=== PATIENT | male | born 1955 | race Caucasian/White ===

== ENCOUNTER 2022-09-15 08:58 | Outpatient (CLI) | payer MEDICARE, BC, SELFPAY | END 2022-09-15 08:59 | disposition home or self-care (01) | PROVIDERS: PCP Orthopaedic Surgery Sports Medicine; Visit Provider Orthopaedic Surgery Sports Medicine | DX: Z01.818 Encounter for other preprocedural examination (principal) | CPT/HCPCS: 36415; 86850; 86900; 86901 ==

== ENCOUNTER 2022-09-17 08:59 | Day surgery (SDC) | payer MEDICARE, BC, SELFPAY ==
[2022-09-17] VITALS (18 sets, daily range): BP systolic 94–130; BP diastolic 62–92; PULSE 68–96; RESP 16–20; TEMP 36.2–36.9; O2SAT 90–98; BMI 31.6
[2022-09-17] MEDS: LACTATED RINGERS 1000 ML 1,000 ML 100 ML IV ×2 (09:10→12:30)
[2022-09-17] MEDS: ACETAMINOPHEN 500 MG TABLET 1000 MG PO ×3 (09:22→23:17)
[2022-09-17] MEDS: OXYCODONE (CR) 10 MG TAB.ER.12H PO (09:22)
[2022-09-17] MEDS: SODIUM CHLORIDE 0.9 % (FLUSH) 10 ML SYRINGE IVF (09:22)
[2022-09-17] MEDS: CELECOXIB 200 MG CAPSULE PO ×2 (09:22→20:07)
--- NOTE | 2022-09-17 09:55 | CRLHL7_ITS ---
For Patients: As a result of the Cures Act, medical imaging exams and procedure reports are released immediately into your electronic medical record. You may view this report before your referring provider. If you have questions, please contact your health care provider. Indication: S/P TOTAL HIP ARTHROPLASTY Technique: AP hip centered pelvis and lateral view left hip Findings/Impression: Hardware from a left total hip arthroplasty is in satisfactory position. Bone alignment is normal. No sign of acute fracture. Postop changes are within normal limits. Dictated by Wali Carlos MD @ 09/18/2022 9:33:26 AM (Electronically Signed)
[2022-09-17] MEDS: fentaNYL 100 MCG/2 ML inj IVP (11:00)
[2022-09-17] MEDS: MIDAZOLAM HCL 1 MG/ML inj IVP (11:00)
--- NOTE | 2022-09-17 11:09 | SUR.PREOP ---
TIME?OUT:?1055 PT/RN/MDA?VERIFICATION?OF?SURGICAL?SITE,?PROCEDURE,?AND?CONSENT OBTAINED?PRIOR?TO?INVASIVE?PROCEDURE.
--- NOTE | 2022-09-17 11:15 | CRLHL7_ITS ---
For Patients: As a result of the Cures Act, medical imaging exams and procedure reports are released immediately into your electronic medical record. You may view this report before your referring provider. If you have questions, please contact your health care provider. Indication: Hip replacement surgery Technique: AP hip fluoroscopic image. Fluoroscopy time 40.1 seconds. Findings/Impression: Hardware from a left total hip arthroplasty is in satisfactory position. Dictated by Wali Carlos MD @ 09/17/2022 12:54:26 PM (Electronically Signed)
[2022-09-17] MEDS: TRANEXAMIC ACID 100 MG/ML INJ 1000 MG IV (11:20)
[2022-09-17] MEDS: CEFAZOLIN 2 GM in 0.9 % SODIUM CHLORIDE Mini-bag 100 ML IVPB ×2 (11:21→16:47)
--- NOTE | 2022-09-17 11:33 | P.NB_ITS ---
Nerve Block Nerve Block Time Seen by Provider: 11:02 Date Seen: 09/17/22 Type of block requested by surgeon for post-operative analgesia: CHINYERE/LFCN Side: left Time out performed: Yes Verification of patient name: Yes Verification of date of : Yes Site marking: site marked Name of person performing procedure: Antonio Continuous monitoring Was continuous monitoring of O2 sat, B/P, principal android developer, recorded every 15 minutes?: Yes Procedure Checklist: sterile prep, needles and gloves Ultrasound guided. Images saved: Yes Medications given in 5ml increments after negative aspiration: Ropivicaine %: 0.5 mL: 30 Needle gauge: 20 Decadron (mg): 10 Precedex (mcg): 25 Patient tolerated procedure well: Yes Additional comments: Needle noted below psoas tendon needle noted adjacent to LFCN Block Charges Block Charge (with Pro Fee): Other Periph Nerve Block Use of Ultrasound Machine for Block: Yes- US Guidance/pain block
--- NOTE | 2022-09-17 11:34 | W.ANESCHARGE ---
Anesthesia Charges Start Date/Time Anesthesia Start Date: 09/17/22 Anesthesia Start Time: 11:11 Stop Date/Time Anesthesia Stop Date: 09/17/22 Anesthesia Stop Time: 13:32
--- NOTE | 2022-09-17 12:55 | PM.ORPRC ---
Procedure Note Date of procedure: 09/17/22 Procedure: PREOPERATIVE DIAGNOSIS: 1. Left hip osteoarthritis, severe, primary POSTOPERATIVE DIAGNOSIS: 1. Left hip osteoarthritis, severe, primary PROCEDURE: 1. Left total hip arthroplasty-anterior approach 2. 08521 - intraoperative fluoroscopy up to 1 hour. SURGEON: Mook Khan MD. KOSHER DIETARY SERVICE SUPERVISOR: Radha Bustos Pa-c; CORINNE Gonzáles - Of note, a skilled assistant professor of physics was critical for this case to aid in patient positioning, tissue retraction, limb manipulation/positioning, dislocation/relocation, patient safety, and closure. ANESTHESIA: General endotracheal anesthetic EBL: 300 mL IMPLANTS: DePuy J&J uncemented total hip Harrington cup size 54, hole eliminator, +4 neutral liner Actis stem, high offset, size 7 +1.5 mm ceramic 36 mm head. COMPLICATIONS: None evident INDICATIONS: The patient is a pleasant 67-year-old who has experienced severe left hip pain and difficulty bearing weight. Workup included x-rays which revealed severe osteoarthrosis in the hip. Given the deformity, the dysfunction, and the pain, as well as the failure of nonoperative management, recommendation was made for surgery. FINDINGS: Full-thickness chondral loss broadly to the femoral head. Osteophytes around the femoral head/neck junction were significant. Also around the acetabular moderate effusion upon entering the joint. DESCRIPTION OF PROCEDURE: Following a thorough discussion of risks, benefits, and alternatives consent was obtained and the left hip was marked. The patient was brought to the operating room and placed supine on the operating table. Induction of anesthesia was undertaken. 2 g IV Ancef and 1 g tranexamic acid was administered within 1 hr of incision preoperatively. Proper time-out was performed identifying proper patient, site, procedure. The operative extremity was prepped and draped in the appropriate sterile fashion using ChloraPrep after the patient was positioned on the [place] table with head in neutral alignment and all bony prominences well padded. C-arm fluoroscopic imaging was utilized to confirm proper pelvis rotation and position, and to get true AP films of both the contralateral left, and the affected left hip. This is for comparison. A longitudinal incision was made starting approximately 1 cm distal to the ASIS, and 3-4 cm lateral. The incision was extended distally aiming toward the lateral border the patella. Sharp incision through skin and bovie cautery through the subcutaneous tissue allowed identification of the TFL fascia. This was sharply divided, and the fascia bluntly released from the muscle fibers as we dissected medial. Upon coming to the medial border, we were able to retract the TFL laterally, and penetrated the deeper fascia and identify the crossing circumflex vessels. These were ligated/cauterized. The rectus was elevated from the capsule, and retractors placed laterally and medially along the femoral neck to help with visualization of the capsule. We then performed an inverted T capsulotomy. The capsule was tagged for later repair. Retractors were placed inside the capsule. The femoral neck was visualized after releasing medially down to the lesser trochanter, along the saddle laterally, and up onto the acetabulum. The femoral neck cut was made in line with our preoperative templating. The head was removed in a single piece, and sized. We turned our attention to acetabular preparation. Initially, the labrum was resected from around the perimeter, the pulvinar was excised, allowing us to visualize the false wall. We started the reaming with a 43 mm reamer. This was medialized down to the true wall. We then enlarged our reamers sequentially up to one size less than the selected cup size. We trialed at the same size and found it to have an excellent fit. The selected cup was then opened, inserted, and impacted in line with the goal of 40-45? of abduction, and 20-25? of anteversion. This was confirmed on C-arm fluoroscopic imaging to be in the appropriate/goal position. Once the cup was placed we placed a hole eliminator and a liner consistent with preop planning. Attention was turned to the femoral preparation. The limb was extended, externally rotated, and adducted. The posteromedial capsule was released, as retractors were placed allowing excellent access to the proximal femur. Initially a box sealing machine catcher was followed by canal finder followed by various broaches. We broached sequentially up to size noted above, found it to have excellent rotational control, and trialing various heads and necks, revealed that appropriate neck offset, and the above noted head size provided the greatest stability, and congregational of length, and offset. C-arm fluoroscopic imaging confirmed position of the stem, as well as leg lengths, which were compared with the pre procedure all fluoroscopic images. Trial implants were removed, the real femoral stem inserted, as was the ceramic head. After reducing, the leg was placed through range of motion and stability was confirmed anterior, posterior, and lateral. A 3 min Betadine soak was then performed, and thorough irrigation with normal saline followed. Closure of the capsule was performed with #1 PDS. Bleeding was confirmed to be controlled at this stage, and the TFL fascia was closed with #0 strata fix. Subcutaneous, and subcuticular closure was performed with 2-0 Vicryl and 4-0 Monocryl, respectively. Dressings were applied, and the patient was awoken from anesthesia and transferred the PACU in stable condition. A skilled assistant professor of physics was critical for this case to aid in patient positioning, tissue retraction, proximal femur exposure, limb manipulation/positioning, dislocation/relocation, patient safety, and closure. PLAN: 1. Weight bear as tolerated operative extremity. 2. 23 hr perioperative antibiotics. 3. Ice. 4. PT/OT consults for ambulation assistance/mobility education. 5. Social work consult for discharge planning. 6. DVT prophylaxis with at SCDs, Arturo Hose, and Xarelto x5 days followed by aspirin for a total of 1 month..
--- NOTE | 2022-09-17 13:32 | W.ANESCHARGE ---
Anesthesia Charges Start Date/Time Anesthesia Start Date: 09/17/22 Anesthesia Start Time: 11:11 Stop Date/Time Anesthesia Stop Date: 09/17/22 Anesthesia Stop Time: 13:32
--- NOTE | 2022-09-17 13:49 | SUR.PHASEI ---
xray here for ap/lat let hip
--- NOTE | 2022-09-17 14:43 | PC.NURSE ---
patient belonging list done in sds
--- NOTE | 2022-09-17 16:38 | P.IMCN_ITS ---
Date of Consult Patient: [facility] Patient Consult date: 09/17/22 Requesting Physician: Orthopedics Primary Care Provider: Damien Simmons PA-C Consult Narrative Reason for consult: Postoperative medical management Narrative: Ryley Hoffman is a 67 year old male seen in consultation for postoperative medical management following left total hip arthroplasty. Procedures performed today by Dr. Khan who requests consultation. Had general anesthesia. Postoperatively he reports no significant pain. He has had no nausea. He feels well. Preoperatively he reports he was doing well other than intractable left hip pain. No other recent medical problems. He has had left total knee arthroplasty in the past and right knee arthroscopy in the past without complications. No personal or family history of problems with bleeding, clotting or problems with anesthesia. Review of Systems Narrative: Other than hip pain he reports he is doing very well. 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 They have a split-level home. He plans to live on the lower level while he recovers from his surgery. He did this after his left knee arthroplasty and it seemed to work well. 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 His hip arthritis is been disabling for him at work. He does not smoke. He does not drink alcohol. Smoking Status: Never smoker Do you use any of these nicotine containing products: None How often do you have a drink containing alcohol: never How often do you have six or more drinks on one occasion: Never AUDIT-C Alcohol total score: 0 Non-prescribed substance use: denies use Caffeine: Yes (2 cans pop/day) Meds Home Medications and Allergies Home Medication Comments: P.r.n. ibuprofen Allergies Allergy/AdvReac Type Severity Reaction Status Date / Time No Known Drug Allergies Allergy Verified 09/17/22 09:11 Exam Narrative: Exam Narrative: He is alert, pleasant and in no distress. He gives his own history. Oropharynx is normal except a small airway. Neck is supple without mass or adenopathy or stridor. Respirations are clear to auscultation. No wheezing rales or rhonchi. Cardiovascular: S1, S2, regular rate and rhythm. No murmur gallop or rub. Abdomen: Bowel sounds active. Abdomen is soft without tenderness or mass. He has an umbilical hernia. It feels like he may have some omentum protruding through the hernia defect. This does not easily reduced. This is not tender. External genitalia normal. Extremities normal. He has intact pulses sensation and motion in all 4 extremities. No edema. No rash Const: Vital Signs, click to edit/add: Vital Signs - 24 hr 09/17/22 09:14 09/17/22 10:58 09/17/22 13:30 Temperature 98.4 F 97.4 F L Pulse Rate 84 81 81 Pulse Rate [Left P ulse Oximeter] Respiratory Rate 16 16 16 Blood Pressure 130/92 H 128/79 124/71 Blood Pressure [Ri ght Arm] Pulse Oximetry 95 95 94 Oxygen Delivery Me thod Room Air Nasal Cannula Room Air Oxygen Flow Rate 2 09/17/22 13:35 09/17/22 13:40 09/17/22 13:45 Temperature Pulse Rate 71 69 69 Pulse Rate [Left P ulse Oximeter] Respiratory Rate 16 16 16 Blood Pressure 111/76 107/69 103/67 Blood Pressure [Ri ght Arm] Pulse Oximetry 94 94 93 Oxygen Delivery Me thod Room Air Room Air Room Air Oxygen Flow Rate 2 2 09/17/22 13:50 09/17/22 14:00 09/17/22 14:15 Temperature 97.8 F 97.2 F L 97.2 F L Pulse Rate 69 71 Pulse Rate [Left P ulse Oximeter] 70 Respiratory Rate 16 16 16 Blood Pressure 113/70 Blood Pressure [Ri ght Arm] 119/62 118/80 Pulse Oximetry 93 90 Oxygen Delivery Me thod Room Air Room Air Room Air Oxygen Flow Rate 09/17/22 14:30 09/17/22 14:45 09/17/22 15:00 Temperature 97.2 F L 97.1 F L 97.1 F L Pulse Rate Pulse Rate [Left P ulse Oximeter] 68 75 70 Respiratory Rate 16 16 16 Blood Pressure Blood Pressure [Ri ght Arm] 117/76 117/76 122/73 Pulse Oximetry 92 92 94 Oxygen Delivery Me thod Room Air Room Air Room Air Oxygen Flow Rate 09/17/22 15:30 Temperature 97.2 F L Pulse Rate Pulse Rate [Left P ulse Oximeter] 78 Respiratory Rate 18 Blood Pressure Blood Pressure [Ri ght Arm] 120/74 Pulse Oximetry 95 Oxygen Delivery Me thod Room Air Oxygen Flow Rate Documenting provider has reviewed patient's vital signs: yes Assessment and Plan Assessment and plan (1) Osteoarthritis of left hip: Problem comment: Severe, [id number] status post left total hip arthroplasty by Dr. Khan 09/17/2022. anticipate uncomplicated recovery, routine pain management and routine therapy. Status: Acute Plan Postop earlier today for left hip arthroplasty. Doing well. Total time spent today is 30 minutes, 20 minutes in coordination of care and discussing with patient and ongoing evaluation management of recovery from hip surgery.
[2022-09-17] MEDS: LACTATED RINGERS 1000 ML 1,000 ML 75 ML IV (16:48)
--- NOTE | 2022-09-17 17:58 | PC.NURSE ---
End of Shift Note: Patient arrived to the unit around 1400 today. When he first arrived he was very sleepy barely opened his eyes would shake his head yes or no for answers. He is now wide awake and has no complaints of pain. Tolerated a regular diet for dinner. has been at bedside. Will continue to monitor until next shift arrives.
[2022-09-17] MEDS: SENNOSIDES 1 TAB TABLET 2 TAB PO (20:08)
[2022-09-18 00:35] VITALS: BP 92/66; PULSE 90; RESP 16; TEMP 36.6; O2SAT 96
[2022-09-18] MEDS: CEFAZOLIN 2 GM in 0.9 % SODIUM CHLORIDE Mini-bag 100 ML IVPB (00:39)
[2022-09-18 00:45] VITALS: BP 103/69; PULSE 90; RESP 16; O2SAT 96
--- NOTE | 2022-09-18 01:33 | PC.NURSE ---
Around 2325 designer/writer took pt vitals, BP 94/79, O2 93%, bpm 91, 97.8F, 16 RR. Vitals were then taken again at 0030 pt's bp was 92/66, bmp was 90, O2 was 92%, and RR 16, pt denies SOB, headache, dizziness and nausea, pt then used restroom and bp was taken again right after getting him back to bed and it was 103/69. [employer] called at 0050 Ananda to notify them of soft bp's. Ananda called back at 0100, no new orders.
[2022-09-18 02:55] VITALS: BP 100/65; PULSE 92; RESP 14; TEMP 36.7; O2SAT 94
[2022-09-18 06:42] LABS: Basophils Percent Auto 0.1 % (0.0-3.0); Hematocrit 37.2 % (37.0-53.0); Hemoglobin* 12.4 gm/dL (13.5-17.5); Immature Granulocytes Pct Auto 0.1 %; Lymphocytes Percent Auto 9.3 % (20-44); Mean Corpuscular HGB Conc 33 gm/dL (32-36); Mean Corpuscular Hemoglobin 31 pg (26-34); Mean Corpuscular Volume 94 fL (80-100); Monocytes Percent Auto 7.8 % (0.0-11.0); Neutrophils Percent Auto 82.7 % (42.0-72.0); Platelet Count* 289 K/uL (140-440); RDW Coefficient of Variation % 12.4 % (11.5-15.5); Red Blood Count 3.95 m/uL (4.30-5.90); White Blood Count* 14.75 K/uL (4.50-11.00)
[2022-09-18 06:47] LABS: Slide Review Reflex No
[2022-09-18 07:00] VITALS: BP 122/76; PULSE 93; RESP 14; TEMP 36.6; O2SAT 94
[2022-09-18 07:15] LABS: Potassium* 4.3 mmol/L (3.6-5.1); Sodium* 135 mmol/L (135-149)
[2022-09-18 07:18] LABS: Blood Urea Nitrogen* 26 mg/dL (7-30); Est. Creatinine Clearance* 75.03; Estimated Glomerular Filt Rate 83 ml/min
--- NOTE | 2022-09-18 07:35 | PC.NURSE ---
Pt alert and oriented x3. Afebrile. Pt reports 0/10 pain in left hip, pain managed with?scheduled Tylenol. Pt denies chest pain, SOB, and N/V. Pt is up SBA with walker and gait belt. Pt is tolerating a regular diet, voiding and saline locked. Pt slept intermittently throughout most of night.?
--- NOTE | 2022-09-18 08:05 | PM.ORPN ---
Subjective Subjective Time Seen by Provider: 08:05 Date Seen: 09/18/22 Principal diagnosis: Status post left hip replacement Interval history: Ryley is comfortable this morning at rest. He plans to discharge to home today. His accompanies him in the room today. He states he get a good night sleep last night. Ortho Exam Narrative Exam Narrative: ROS: Patient denies nausea, vomiting, fever, chills, chest pain, shortness of breath. Alert and oriented x3. Patient is in no acute distress. Converses without labored breathing. Hearing is grossly intact. Ambulates with a walker. Examination of left lower extremity shows the dressing is intact. No erythema or drainage or sign of infection. Small area of ecchymosis is present. Edema is present about the thigh and hip which is mild. Mild thigh tenderness. CMS intact left lower extremity. Good quad strength. Bilateral calves are soft and nontender. Const Vital Signs, click to edit/add: Vital Signs - 24 hr 09/17/22 09:14 09/17/22 10:58 09/17/22 13:30 Temperature 98.4 F 97.4 F L Pulse Rate 84 81 81 Pulse Rate [Left Pulse Oximeter] Respiratory Rate 16 16 16 Blood Pressure 130/92 H 128/79 124/71 Blood Pressure [Left Arm] Blood Pressure [Right Arm] Pulse Oximetry 95 95 94 Oxygen Delivery Method Room Air Nasal Cannula Room Air Oxygen Flow Rate 2 09/17/22 13:35 09/17/22 13:40 09/17/22 13:45 Temperature Pulse Rate 71 69 69 Pulse Rate [Left Pulse Oximeter] Respiratory Rate 16 16 16 Blood Pressure 111/76 107/69 103/67 Blood Pressure [Left Arm] Blood Pressure [Right Arm] Pulse Oximetry 94 94 93 Oxygen Delivery Method Room Air Room Air Room Air Oxygen Flow Rate 2 2 09/17/22 13:50 09/17/22 14:00 09/17/22 14:15 Temperature 97.8 F 97.2 F L 97.2 F L Pulse Rate 69 71 Pulse Rate [Left Pulse Oximeter] 70 Respiratory Rate 16 16 16 Blood Pressure 113/70 Blood Pressure [Left Arm] Blood Pressure [Right Arm] 119/62 118/80 Pulse Oximetry 93 90 Oxygen Delivery Method Room Air Room Air Room Air Oxygen Flow Rate 09/17/22 14:30 09/17/22 14:45 09/17/22 15:00 Temperature 97.2 F L 97.1 F L 97.1 F L Pulse Rate Pulse Rate [Left Pulse Oximeter] 68 75 70 Respiratory Rate 16 16 16 Blood Pressure Blood Pressure [Left Arm] Blood Pressure [Right Arm] 117/76 117/76 122/73 Pulse Oximetry 92 92 94 Oxygen Delivery Method Room Air Room Air Room Air Oxygen Flow Rate 09/17/22 15:30 09/17/22 16:00 09/17/22 17:00 Temperature 97.2 F L Pulse Rate Pulse Rate [Left Pulse Oximeter] 78 82 82 Respiratory Rate 18 20 20 Blood Pressure Blood Pressure [Left Arm] Blood Pressure [Right Arm] 120/74 119/68 109/77 Pulse Oximetry 95 96 98 Oxygen Delivery Method Room Air Room Air Room Air Oxygen Flow Rate 09/17/22 18:00 09/17/22 21:00 09/17/22 23:25 Temperature 97.2 F L Pulse Rate Pulse Rate [Left Pulse Oximeter] 96 95 91 Respiratory Rate 20 18 16 Blood Pressure Blood Pressure [Left Arm] 100/71 Blood Pressure [Right Arm] 115/77 Pulse Oximetry 94 97 Oxygen Delivery Method Room Air Room Air Oxygen Flow Rate 09/17/22 23:25 09/18/22 00:35 09/18/22 00:45 Temperature 97.9 F 97.9 F Pulse Rate Pulse Rate [Left Pulse Oximeter] 91 90 90 Respiratory Rate 18 16 16 Blood Pressure Blood Pressure [Left Arm] 94/79 Blood Pressure [Right Arm] 92/66 103/69 Pulse Oximetry 93 96 96 Oxygen Delivery Method Room Air Room Air Room Air Oxygen Flow Rate 09/18/22 02:55 Temperature 98.0 F Pulse Rate Pulse Rate [Left Pulse Oximeter] 92 Respiratory Rate 14 Blood Pressure Blood Pressure [Left Arm] Blood Pressure [Right Arm] 100/65 Pulse Oximetry 94 Oxygen Delivery Method Room Air Oxygen Flow Rate Assessment and Plan Assessment and plan (1) Status post left hip replacement: Problem details: 09/17/2022 Status: Acute Assessment and Plan: Plan for discharge is today to home if they meet discharge criteria. DVT prophylaxis includes Xarelto 10 mg daily for total of 5 days, then aspirin 81 mg twice daily for 30 days, Arturo stockings x1 month may remove for 1 hr per day, frequent ambulation Remove dressing in 1 week. Observe wound and phone Orthopedics with any questions or concerns Use Ice on operative hip unrestricted. Return to clinic in 1 week with PA for a wound check Return to clinic in [address] Khan Minimize narcotic use. Wean off and discontinue soon as possible. Activities as tolerated. No strenuous activity. Attend outpt PT Patient is instructed to notify Orthopedics with any questions or concerns.
[2022-09-18] MEDS: SENNOSIDES 1 TAB TABLET 2 TAB PO (09:37)
[2022-09-18] MEDS: ACETAMINOPHEN 500 MG TABLET 1000 MG PO (09:37)
[2022-09-18] MEDS: CELECOXIB 200 MG CAPSULE PO (09:37)
[2022-09-18] MEDS: RIVAROXABAN 10 MG TABLET PO (09:37)
--- NOTE | 2022-09-18 10:22 | PC.SOCIAL ---
Met with pt and pt's to discuss discharge plans. Pt is in good spirits and is moving well. Pt is prepared for recovery at home and has assistance from his . There are no identified social work needs. Informed pt and pt's if they have any questions/concerns they can reach out to social work department if needed.
--- NOTE | 2022-09-18 11:30 | PC.NURSE ---
Patient vitally stable. PIV removed. All concerns addressed. AVS reviewed. Patient discharged to home with spouse.
== END 2022-09-18 11:30 | disposition home or self-care (01) ==
LOC: OR 08:59 → MEDSURG 09:04
PROVIDERS: PCP Physician Assistant Medical; Visit Provider Orthopaedic Surgery Sports Medicine
PROC: (CPT 27130; principal; 2022-09-17 11:15)
DX: M16.12 Unilateral primary osteoarthritis, left hip (principal); G89.18 Other acute postprocedural pain
CPT/HCPCS: 27130; 01214; 36415; 64450; 73501; 76942; 82565; 84132; 84295; 84520; 85025; 97110; 97116; 97161; 97165; A9270; C1776; J0330; J0690; J1100; J2250; J2371; J2405; J2704; J2795; J3010; J3490; J7120

== ENCOUNTER 2022-10-09 10:30 | Outpatient (RCR) | payer MEDICARE, BC, SELFPAY | END 2022-10-09 12:25 | disposition home or self-care (01) | PROVIDERS: PCP Orthopaedic Surgery Sports Medicine; Visit Provider Orthopaedic Surgery Sports Medicine | DX: M16.12 Unilateral primary osteoarthritis, left hip (principal); Z96.642 Presence of left artificial hip joint; Z51.89 Encounter for other specified aftercare | CPT/HCPCS: 97110; 97116; 97140; 97161; 97164; 97535 ==

== ENCOUNTER 2024-02-03 08:27 | Outpatient (CLI) | payer MEDICARE, BC, SELFPAY ==
--- OUTSIDE RECORDS SUMMARY | 2024-02-05 11:45 | XMS_ITS | Clinical Summary ---
Author Organization [employer] [facility] Address [place], [place] [address] Care Team Providers Care Property Insurance Inspector Name Role Phone Bo Mehta MD Primary Care Provider U navailable Allergies No known active allergies Medications No known medications Active Problems Problem Noted Date Diagnosed Date Knee injury 05/11/2014 Overview (05/11/2014): Many surgeries since 1974 Immunizations Name Administration Dates Next Due Tdap 05/11/2014 Family History Medical History Relation Name Comments Good Health Father born 1922 Other Mother at 85 - ol d age Good Health Sister all 4 sisters Relation Name Status Comments Father Mother Sister Social History Tobacco Use Types Packs/Day Years Used Date Smoking Tobacco: Never Smokeless Tobacco: Never Tobacco Cessation:Counseling Given: Yes Alcohol Use Standard Drinks/Week Comments No 0 (1 standard drink = 0.6 oz pur e alcohol) Sex and Gender Information Value Date Recorded Sex Assigned at Not on file Gender Identity Not on file Sexual Orientation Not on file Obstetrics History Last Filed Vital Signs Vital Sign Reading Time Taken Comments Blood Pressure 111/77 05/11/2014 8:02 AM 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 DIRECTOR Pulse 89 05/11/2014 8:02 AM 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 DIRECTOR Temperature 36.9 C (98.5 F) 05/11/2014 8:02 AM 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 DIRECTOR Respiratory Rate - - Oxygen Saturation 98% 05/11/2014 8:02 AM 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 DIRECTOR Inhaled Oxygen Concentration - - Weight 98 kg (216 lb) 05/11/2014 8:02 AM 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 DIRECTOR Height - - Body Mass Index - - Plan of Treatment Health Maintenance Due Date Last Done Comments Depression screening for age 12+ 1968 BMI (ht and wt on same day) for age 18+ 1974 Hepatitis C screening for age 18-79 1974 Colonoscopy through age 75 2001 Lipids for age 45-75 2001 Zoster (shingles) series for age 50+ (1 of 2) 08/14/19 07 Pneumococcal series for age 65+ (1 of 1 - PCV) 022 COVID-19 vaccine series ( - 2023- season) 4 Influenza for age 65+ 11/10/2023 Tetanus booster 05/11/2024 05/11/2014 Tdap Completed 05/11/2014 Care Teams Property Insurance Inspector Relationship Specialty Start Date End Date Bo Mehta MD PCP - General 10/25/05
== END 2024-02-03 08:28 | disposition home or self-care (01) ==
LOC: NFLDREF 02-05 11:43
PROVIDERS: PCP Physician Assistant Medical; Referring Provider Physician Assistant Medical; Visit Provider Physician Assistant Medical
DX: L98.9 Disorder of the skin and subcutaneous tissue, unspecified (principal); K42.0 Umbilical hernia with obstruction, without gangrene; Z12.5 Encounter for screening for malignant neoplasm of prostate; Z13.29 Encounter for screening for other suspected endocrine disorder; Z13.6 Encounter for screening for cardiovascular disorders
CPT/HCPCS: 80053; 80061; 84443; G0103

== ENCOUNTER 2024-03-02 05:45 | Day surgery (SDC) | payer MEDICARE, BC, SELFPAY ==
[2024-03-02] MEDS: 0.9 % SODIUM CHLORIDE 500 ML 500 ML 100 ML IV (06:15)
[2024-03-02 06:31] VITALS: BP 141/82; PULSE 82; RESP 16; TEMP 36.7; O2SAT 96; BMI 31.8
[2024-03-02] MEDS: SODIUM CHLORIDE 0.9 % (FLUSH) 10 ML SYRINGE IVF (06:35)
--- NOTE | 2024-03-02 07:20 | W.PM.H&PU ---
History & Physical Update History & Physical Update H&P Reviewed and patient assessed: The following changes are noted below H&P Updates: Patient has seen dermatology for Lip lesion. They are planning a Mohs procedure.
[2024-03-02] MEDS: CEFAZOLIN 2 GM INJ IVP (07:33)
[2024-03-02] MEDS: BUPIVACAINE 0.25% 30 ML INJECTION (08:15)
--- NOTE | 2024-03-02 08:32 | PM.GSPRC ---
Operative Note Date of procedure: 03/02/24 Pre-op diagnosis: Incarcerated umbilical hernia Post-op diagnosis: same Type of Procedure: Open repair 2 cm incarcerated umbilical hernia with mesh. Indications: The patient is a 68-year-old male who presented to clinic with an incarcerated umbilical hernia. After discussion, he elected to proceed with repair. Procedure Description: After discussing the risks and benefits of the procedure, the patient signed informed consent.? The operative site was marked and the patient was brought to the operating room and placed on the operating table in supine position.? Care was taken to pad the patient's pressure points.?? The patient was then given sedation by anesthesia.?? The operative site was then prepped and draped in the usual sterile fashion.? A time-out was then performed. Local anesthetic was injected into the fascia, skin and subcutaneous tissues. A curvilinear incision was made at the inferior border of the umbilicus. Dissection was carried down into the subcutaneous tissue using cautery. The hernia was dissected off the umbilical skin. Dissection was taken down to the fascia. The hernia was incarcerated. The hernia sac was opened. Omental fat was contained within. This was reduced as much as possible, however the most distal aspect that had herniated was divided with cautery, with care to ensure no other structures were contained within. The tissue was then completely reduced. The fascial edges were then cleared circumferentially. The hernia was 2 cm in size and so the decision was made to use a piece of mesh. A preperitoneal pocket was created using a combination of blunt dissection and cautery. Once this was done a piece Bard [address] mesh was placed in the space. This was secured in place using 2 0 PDS suture. The fascial opening was then closed with interrupted 0 Nurolon suture in a [id number] fashion. The umbilicus was reapproximated to the fascia using absorbable suture. The skin was closed with 3-0 Vicryl dermal and 4-0 Monocryl running subcuticular suture. Glue was then applied as well as sterile dressing. Instrument sponge and needle counts were correct at end of the case. The patient was then woken and transported to the recovery area in stable condition. The patient tolerated the procedure well. Findings: 2 cm incarcerated umbilical hernia containing abdominal fat. Anesthesia: MAC Surgeon: Belkis Mcdonald MD Estimated blood loss (mL): 5 Condition: stable Disposition: same day
--- NOTE | 2024-03-02 08:38 | W.ANESCHARGE ---
Anesthesia Charges Start Date/Time Anesthesia Start Date: 03/02/24 Anesthesia Start Time: 07:22 Stop Date/Time Anesthesia Stop Date: 03/02/24 Anesthesia Stop Time: 08:39
[2024-03-02 08:40] VITALS: BP 137/79; PULSE 73; RESP 16; TEMP 36.2; O2SAT 91
[2024-03-02 09:00] VITALS: BP 138/86; PULSE 73; RESP 16; O2SAT 91
[2024-03-02 09:15] VITALS: BP 141/90; PULSE 74; RESP 16; O2SAT 93
[2024-03-02 09:30] VITALS: BP 138/77; PULSE 73; RESP 16; O2SAT 95
== END 2024-03-02 09:48 | disposition home or self-care (01) ==
PROVIDERS: PCP Physician Assistant Medical; Visit Provider Surgery
PROC: (CPT 49592; principal; 2024-03-02 07:30)
DX: K42.0 Umbilical hernia with obstruction, without gangrene (principal)
CPT/HCPCS: 49592; 00750; C1781; J0665; J0690; J1100; J1885; J2405; J2704; J3010; J3490; J7030

== ENCOUNTER 2024-09-21 06:25 | Day surgery (SDC) | payer MEDICARE, BC, SELFPAY ==
[2024-09-21] VITALS (16 sets, daily range): BP systolic 81–134; BP diastolic 52–77; PULSE 42–77; RESP 14–24; TEMP 36.1–36.8; O2SAT 93–99; BMI 31.4
[2024-09-21] MEDS: SODIUM CHLORIDE 0.9 % (FLUSH) 10 ML SYRINGE IVF (07:00)
[2024-09-21] MEDS: LACTATED RINGERS 1000 ML 1,000 ML 100 ML IV ×3 (07:00→11:17)
[2024-09-21] MEDS: ACETAMINOPHEN 500 MG TABLET 1000 MG PO (07:05)
[2024-09-21] MEDS: OXYCODONE (CR) 10 MG TAB.ER.12H PO (07:05)
--- NOTE | 2024-09-21 07:09 | SUR.PREOP ---
TIME?OUT:?0720 PT/RN/MDA?VERIFICATION?OF?SURGICAL?SITE,?PROCEDURE,?AND?CONSENT OBTAINED?PRIOR?TO?INVASIVE?PROCEDURE.
--- NOTE | 2024-09-21 07:15 | W.PM.H&PU ---
History & Physical Update History & Physical Update H&P Reviewed and patient assessed: No changes noted
[2024-09-21] MEDS: MIDAZOLAM HCL 1 MG/ML inj IVP (07:21)
--- NOTE | 2024-09-21 07:39 | P.ANES_ITS ---
Anesthesia Charges Start Date/Time Anesthesia Start Date: 09/21/24 Anesthesia Start Time: 07:45 Stop Date/Time Anesthesia Stop Date: 09/21/24 Anesthesia Stop Time: 10:53 Coding CPT Codes CPT Codes: ANESTH HIP ARTHROPLASTY - 52445 ([id number]) P2 - PATIENT W/MILD SYST DISEASE, QK - DRILL DOCTOR 2-4 CNCRNT ANES PROC, QX - MOSS GATHERER SVC W/ MD MED DIRECTION
--- NOTE | 2024-09-21 07:39 | W.ANESCHARGE ---
Anesthesia Charges Start Date/Time Anesthesia Start Date: 09/21/24 Anesthesia Start Time: 07:45 Stop Date/Time Anesthesia Stop Date: 09/21/24 Anesthesia Stop Time: 10:53 Coding CPT Codes CPT Codes: ANESTH HIP ARTHROPLASTY - 54710 ([id number]) P2 - PATIENT W/MILD SYST DISEASE, QK - JANITOR HEAD 2-4 CNCRNT ANES PROC, QX - TUBER MACHINE CUTTER SVC W/ MD MED DIRECTION
--- NOTE | 2024-09-21 07:40 | W.PM.NB ---
Nerve Block Nerve Block Time Seen by Provider: 07:22 Date Seen: 09/21/24 Type of block requested by surgeon for post-operative analgesia: CHINYERE/LFCN Side: right Time out performed: Yes Verification of patient name: Yes Verification of date of : Yes Site marking: site marked Name of person performing procedure: Antonio Continuous monitoring Was continuous monitoring of O2 sat, B/P, pre sales architect, recorded every 15 minutes?: Yes Procedure Checklist: sterile prep, needles and gloves Ultrasound guided. Images saved: Yes Medications given in 5ml increments after negative aspiration: Ropivicaine %: 0.5 mL: 30 Needle gauge: 20 Precedex (mcg): 25 Patient tolerated procedure well: Yes Additional comments: Needle noted below psoas tendon needle noted adjacent to LFCN Block Charges Block Charge (with Pro Fee): Other Periph Nerve Block Use of Ultrasound Machine for Block: Yes- US Guidance/pain block
--- NOTE | 2024-09-21 07:45 | CRLHL7_ITS ---
For Patients: As a result of the Cures Act, medical imaging exams and procedure reports are released immediately into your electronic medical record. You may view this report before your referring provider. If you have questions, please contact your health care provider. Indication: Hip replacement surgery Technique: AP hip fluoroscopic images. Fluoroscopy time 33.9 seconds. Findings/Impression: Hardware from a right total hip arthroplasty is in satisfactory position. Dictated by Wali Carlos MD @ 09/21/2024 10:29:09 AM (Electronically Signed)
[2024-09-21] MEDS: TRANEXAMIC ACID 100 MG/ML INJ 1000 MG IV (08:17)
--- NOTE | 2024-09-21 09:55 | PM.ORPRC ---
Procedure Note Date of procedure: 09/21/24 Procedure: PREOPERATIVE DIAGNOSIS: 1. Right hip osteoarthritis, severe, primary POSTOPERATIVE DIAGNOSIS: 1. Right hip osteoarthritis, severe, primary PROCEDURE: 1. Right total hip arthroplasty-anterior approach 2. 28988 - intraoperative fluoroscopy up to 1 hour. SURGEON: Mook Khan MD. RACE ENGINE BUILDER: Jimmy Edwards PA-C; CORINNE Gonzáles - Of note, a skilled physician office assistant was critical for this case to aid in patient positioning, tissue retraction, limb manipulation/positioning, and closure. ANESTHESIA: General endotracheal anesthetic EBL: 550ml IMPLANTS: DePuy J&J uncemented total hip Hinckley cup size 54, hole eliminator, +4 neutral liner Actis stem, high offset, size 6 +1.5mm ceramic 36mm head COMPLICATIONS: None evident INDICATIONS: The patient is a pleasant 69 year old male who has experienced severe right hip pain and difficulty bearing weight. Workup included x-rays which revealed severe osteoarthrosis in the hip. Given the deformity, the dysfunction, and the pain, as well as the failure of nonoperative management, recommendation was made for surgery. FINDINGS: Full-thickness chondral loss diffusely throughout the femoral head and acetabulum. Osteophytes around the femoral head/neck junction and perimeter of the acetabulum. Large effusion upon entering the joint. DESCRIPTION OF PROCEDURE: Following a thorough discussion of risks, benefits, and alternatives consent was obtained and the right hip was marked. The patient was brought to the operating room and placed supine on the operating table. Induction of anesthesia was undertaken. 2 g IV Ancef and 1 g tranexamic acid was administered within 1 hr of incision preoperatively. Proper time-out was performed identifying proper patient, site, procedure. The operative extremity was prepped and draped in the appropriate sterile fashion using ChloraPrep after the patient was positioned on the Sheridan table with head in neutral alignment and all bony prominences well padded. C-arm fluoroscopic imaging was utilized to confirm proper pelvis rotation and position, and to get true AP films of both the contralateral left, and the affected right hip. This is for comparison. A longitudinal incision was made starting approximately 1 cm distal to the ASIS, and 3-4 cm lateral. The incision was extended distally aiming toward the lateral border the patella. Sharp incision through skin and bovie cautery through the subcutaneous tissue allowed identification of the TFL fascia. This was sharply divided, and the fascia bluntly released from the muscle fibers as we dissected medial. Upon coming to the medial border, we were able to retract the TFL laterally, and penetrated the deeper fascia and identify the crossing circumflex vessels. These were ligated/cauterized. The rectus was elevated from the capsule, and retractors placed laterally and medially along the femoral neck to help with visualization of the capsule. We then performed an inverted T capsulotomy. The capsule was tagged for later repair. Retractors were placed inside the capsule. The femoral neck was visualized after releasing medially down to the lesser trochanter, along the saddle laterally, and up onto the acetabulum. The femoral neck cut was made in line with our preoperative templating. The head was removed in a single piece, and sized. We turned our attention to acetabular preparation. Initially, the labrum was resected from around the perimeter, the pulvinar was excised, allowing us to visualize the false wall. We started the reaming with a 43 mm reamer. This was medialized down to the true wall. We then enlarged our reamers sequentially up to one size less than the selected cup size. We trialed at the same size and found it to have an excellent fit. The selected cup was then opened, inserted, and impacted in line with the goal of 40? of abduction, and 20-25? of anteversion. This was confirmed on C-arm fluoroscopic imaging to be in the appropriate/goal position. Once the cup was placed we placed a hole eliminator and a liner consistent with preop planning. Attention was turned to the femoral preparation. The limb was extended, externally rotated, and adducted. The posteromedial capsule was released, as retractors were placed allowing excellent access to the proximal femur. Initially a box toe cementer was followed by canal finder followed by various broaches. We broached sequentially up to the size noted above, found it to have excellent rotational control, and trialing various heads and necks, revealed that appropriate neck offset, and the above noted head size provided the greatest stability, and bahai of length, and offset. C-arm fluoroscopic imaging confirmed position of the stem, as well as leg lengths, which were compared with the pre procedure all fluoroscopic images. Trial implants were removed, the real femoral stem inserted, as was the appropriate head. After reducing, the leg was placed through range of motion and stability was confirmed anterior, posterior, and lateral. A 3 min Betadine soak was then performed, and thorough irrigation with normal saline followed. Closure of the capsule was performed with #1 PDS. Bleeding was confirmed to be controlled at this stage, and the TFL fascia was closed with #0 strata fix. Subcutaneous, and subcuticular closure was performed with 2-0 stratafix and 4-0 stratafix, respectively. Dressings were applied, and the patient was awoken from anesthesia and transferred the PACU in stable condition. A skilled physician office assistant was critical for this case to aid in patient positioning, tissue retraction, acetabular and proximal femoral exposure, limb manipulation/positioning, dislocation/relocation, patient safety, and closure. PLAN: 1. Weight bear as tolerated operative extremity. 2. 23 hr perioperative antibiotics. 3. Ice. 4. PT/OT consults for ambulation assistance/mobility education. 5. Social work consult for discharge planning. 6. DVT prophylaxis with at SCDs and Xarelto x5 days followed by aspirin for a total of 1 month..
--- NOTE | 2024-09-21 09:58 | CRLHL7_ITS ---
For Patients: As a result of the Cures Act, medical imaging exams and procedure reports are released immediately into your electronic medical record. You may view this report before your referring provider. If you have questions, please contact your health care provider. Indication: Post total hip replacement Technique: AP pelvis and lateral view right hip Findings/Impression: Hardware from a right total hip arthroplasty is in satisfactory position. Bone alignment is normal. No sign of acute fracture. Postop changes are within normal limits. Dictated by Wali Carlos MD @ 09/21/2024 12:08:01 PM (Electronically Signed)
--- NOTE | 2024-09-21 11:02 | SUR.PHASEI ---
X-ray here for post-op images at 1054.
--- NOTE | 2024-09-21 11:06 | P.ANES_ITS ---
Anesthesia Charges Start Date/Time Anesthesia Start Date: 09/21/24 Anesthesia Start Time: 07:45 Stop Date/Time Anesthesia Stop Date: 09/21/24 Anesthesia Stop Time: 10:53 Coding CPT Codes CPT Codes: ANESTH HIP ARTHROPLASTY - 73702 ([id number]) P2 - PATIENT W/MILD SYST DISEASE, QX - EDUCATION DEPARTMENT CHAIR SVC W/ MD MED DIRECTION, QK - FIRE RANGE TECHNICIAN 2-4 CNCRNT ANES PROC
--- NOTE | 2024-09-21 11:06 | W.ANESCHARGE ---
Anesthesia Charges Start Date/Time Anesthesia Start Date: 09/21/24 Anesthesia Start Time: 07:45 Stop Date/Time Anesthesia Stop Date: 09/21/24 Anesthesia Stop Time: 10:53 Coding CPT Codes CPT Codes: ANESTH HIP ARTHROPLASTY - 67445 ([id number]) P2 - PATIENT W/MILD SYST DISEASE, QX - MANAGER COMPETITIVE INTELLIGENCE SVC W/ MD MED DIRECTION, QK - SAMPLE EXAMINER 2-4 CNCRNT ANES PROC
--- NOTE | 2024-09-21 11:08 | SUR.PHASEI ---
X-ray done at 1106.
[2024-09-21] MEDS: ePHEDrine sulfate 5 MG/ML inj IVP ×2 (11:10→11:20)
[2024-09-21] MEDS: ACETAMINOPHEN 325 MG TABLET PO (14:39)
== END 2024-09-21 14:54 | disposition home or self-care (01) ==
LOC: OR 06:27
PROVIDERS: PCP Physician Assistant Medical; Visit Provider Orthopaedic Surgery Sports Medicine
PROC: (CPT 27130; principal; 2024-09-21 07:45)
DX: M16.11 Unilateral primary osteoarthritis, right hip (principal); G89.18 Other acute postprocedural pain
CPT/HCPCS: 27130; 01214; 36415; 64450; 73501; 76000; 76942; 86850; 86900; 86901; 97110; 97116; 97161; 97165; 97535; A9270; C1776; J0330; J0690; J1100; J2250; J2371; J2405; J2704; J2710; J2795; J3010; J3490; J7120

== ENCOUNTER 2024-10-20 08:00 | Outpatient (RCR) | payer MEDICARE, BC, SELFPAY ==
--- NOTE | 2024-09-29 08:48 | PT.OPEX ---
PT [place] [facility] Eval PT [facility] Eval Start: 09/29/24 07:44 Freq: Status: Active Protocol: Document 09/29/24 07:46 CUBACheo (Rec: 09/29/24 08:45 THERESA [id number]) E-signed By Maribel Abbasi, PT Physical Therapy Outpatient Evaluation Insurance Information Recert Due Date 12/24/24 Insurance Name Medicare B,Blue Cross/[employer] Shield Medical Diagnosis S/P R ALVARO DOS 09/21/24 Treating Diagnosis Right hip pain, limited hip ROM, muscle weakness, antalgic gait Referring MD Khan Subjective Subjective Ross reports to PT s/p 1 week R ALVARO SDS. Main limitation is swelling throughout the leg and stiffness . Pain 2/10 at the worst. Denies radicular symptoms or calf pain. Has mostly been ambulating with 2WW and just started short distances with SEC. Compliant with HEP and icing. Has not been elevating much. Sleeping well. Has follow up with PA this afternoon. 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 Slow ayaan however good heel to toe and foot clearance Functional Test LEFS: 12/80 Performed & Score Assessment Assessment/ Pt presents with signs and symptoms consistent with s/p Impression R ALVARO. DOS: 09/21/24. Anticipated deficits/impairments in pain, ROM, and strength. Moderate diffuse swelling throughout the leg however no s/s of DVT. Strongly encouraged more elevation and APs. Administered tubigrip to assist with swelling. No s/s of infection. 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 Plan of Care Rehabilitation Good Potential Physical Therapy By 4 weeks Goals Pt will be able to ascend/descend 1 flight of stairs in order to perform ADLs pain free. Pt will demonstrate full and pain free hip ROM in order to perform all ADLs including don/doffing shoes/socks By 8 weeks Pt will exhibit 9 pt improvement in LEFS Outcome measure to demonstrate functional improvement and progress towards goals. Pt will tolerate gradual progression back to ADLs with <2/10 pain Patient will transition from walker to cane to independent gait with normal mechanics. Treatment Plan/ Gait Training,Ice/Cold/Vasopneumatic,Joint Mobilization Direct Interventions ,Manual Therapy,Neuromuscular Re-ed,Self-Care/Home Management,Therapeutic Activities,Therapeutic Exercises Frequency/Duration 1x/wk for 4 weeks with additional 2 sessions prn based on progress Patient Will Be Completion of LTG(s),Independent w/HEP,Independently Discharged From Progressing Therapy Evaluation Billing Untimed Code 20 Treatment Minutes Complexity Low Certification Information Initial 09/29/24 Certification Date Ending Certification 12/24/24 Date Provider Signature Yes Required Provider Signature POC & Medical Necessity Shows Agreement With Physician NPI Number Write NPI# Here Physician Comment/ : Change Physician Signature Please Sign/Date Here & Date Requested
== END 2024-10-20 10:20 | disposition home or self-care (01) ==
PROVIDERS: PCP Physician Assistant Medical; Visit Provider Orthopaedic Surgery Sports Medicine
DX: Z47.1 Aftercare following joint replacement surgery (principal); Z96.641 Presence of right artificial hip joint; Z51.89 Encounter for other specified aftercare
CPT/HCPCS: 97110; 97161